=== PATIENT | male | born 1995 | race Caucasian/White ===

== ENCOUNTER 2019-03-30 21:37 | Emergency (ER) | payer BC ==
[2019-03-30 21:49] VITALS: BP 157/92; TEMP 97.5; O2SAT 98
[2019-03-30] MEDS: ONDANSETRON ODT 8 MG TAB SL ONE (22:19)
[2019-03-30] MEDS: HYDROmorphone HCL INJ 2 MG/ML VIAL IM ONE (22:20)
--- NOTE | 2019-03-30 23:41 | ED.PDOC ---
History of Present Illness - General Chief Complaint: Dental/Mouth Stated Complaint: tooth pain x3 days Time Seen by Provider: 03/30/19 22:13 Source: patient, RN notes reviewed, Vital Signs reviewed, family Exam Limitations: no limitations - History of Present Illness Initial Comments: she complains of tooth #32 pain 3 days. No trauma. No fevers or chills. worse with cold fluid or chewing. nothing makes it better. Patient denies any facial swelling. Timing/Duration: gradual Severity: moderate EENT Location: dental Prearrival Treatment: over the counter meds Improving Factors: nothing Worsening Factors: cold therapy, movement Associated Symptoms: denies symptoms Home Medications: Ambulatory Orders Acetamin W/Cod #3 Tab [Tylenol w/CODEINE #3] 1 ea PO Q6H #12 tab 03/30/19 Review of Systems - Review of Systems Constitutional: States: no symptoms reported EENTM: States: see HPI, mouth pain. Denies: ear pain, ear discharge Respiratory: States: no symptoms reported Cardiology: States: no symptoms reported Gastrointestinal/Abdominal: States: no symptoms reported Genitourinary: States: no symptoms reported Musculoskeletal: States: no symptoms reported Skin: States: no symptoms reported Neurological: States: no symptoms reported Endocrine: States: no symptoms reported Hematologic/Lymphatic: States: no symptoms reported All other Systems: Reviewed and Negative Past Medical History (General) - Patient Medical History Hx Asthma: No Hx Congestive Heart Failure: No Hx Diabetes: No Surgical History: no surgical history - Vaccination History Hx Tetanus, Diphtheria Vaccination: Yes Hx Influenza Vaccination: No Hx Pneumococcal Vaccination: No - Social History Hx Tobacco Use: No Hx Alcohol Use: Yes Family Medical History - Family History Father Family History: Unknown Physical Exam - Physical Exam General Appearance: Alert, Anxious, Obvious distress, Well Developed, Well Groomed, Well Hydrated, Well Nourished Eye Exam: bilateral normal Ear Exam: bilateral ear: auricle normal Nasal Exam: normal inspection Throat Exam: dental tenderness - tooth #32 Neck: non-tender, full range of motion, supple, normal inspection Cardiovascular/Respiratory: regular rate, rhythm, no M/R/G, normal peripheral pulses, no JVD, normal breath sounds, no respiratory distress Abdominal Exam: non-tender, no organomegaly Neurologic: head of 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 03/30/19 23:43 pain improved after pain medication. Plan d/c home. Manolo Pizarro M.D. #[id number] Departure - Departure Clinical Impression: Pain, dental Disposition: Discharge to Home or Self Care Condition: Good Departure Forms: ED Discharge - Pt. Copy, Patient Portal Self Enrollment Instructions: DI for Mouth Pain, DI for Dental Pain Prescriptions: Acetamin W/Cod #3 Tab [Tylenol w/CODEINE #3] 1 ea PO Q6H #12 tab Home Medications: Ambulatory Orders Acetamin W/Cod #3 Tab [Tylenol w/CODEINE #3] 1 ea PO Q6H #12 tab 03/30/19 Additional Instructions: Follow up with your dentist.
== END 2019-03-30 23:50 | disposition home or self-care (01) ==
LOC: ER 21:37
DX: K08.89 Other specified disorders of teeth and supporting structures (principal)

== ENCOUNTER 2019-04-19 21:55 | Emergency (ER) | payer BC ==
[2019-04-19] MEDS: IPRATROPIUM/ALBUTEROL 3 ML VIAL NEB ONE (22:51)
[2019-04-19] MEDS: ALBUTEROL SULFATE 2.5 MG/3 ML VIAL NEB ONE (22:53)
--- NOTE | 2019-04-19 22:56 | RAD ---
EXAM DESCRIPTION: Chest,2 Views CLINICAL HISTORY:23 years Male, cough Comparison: None FINDINGS: No focal lung consolidation. No pleural effusion. No pneumothorax. Cardiomediastinal silhouette is within normal limits. No acute osseous abnormality. Thoracolumbar dextroscoliosis. IMPRESSION: No acute cardiopulmonary disease. Electronically signed by: Frank Cartwright DO 04/19/2019 10:54 PM BUSINESS DIRECTOR
--- NOTE | 2019-04-19 23:45 | ED.PDOC ---
History of Present Illness - General Chief Complaint: Respiratory Problem Stated Complaint: cough and congestion for 3 days Time Seen by Provider: 04/19/19 22:18 Source: patient, RN notes reviewed, Vital Signs reviewed Exam Limitations: no limitations - History of Present Illness Comments: patient presents with complaints of unremitting cough 3 days. It is worsening. It is causing him to have a sore throat. The pain is scratchy in nature. It is a 10 out of 10. Worse with deep inspiration or cough. Cough is worse with deep inspiration. Patient has not taken any medications to control the cough. Patient denies fever, chills, nausea, vomiting, diarrhea. He denies any headache or blurry vision. He does have some mild shortness of breath. He denies chest pain. Cough Quality/Degree: moderate, dry cough Possible Cause: occasional episodes Improving Factors: nothing Associated Symptoms: cough, nasal congestion, nasal drainage, shortness of breath, sore throat Respiratory Risk Factors: no cause identified Allergies/Adverse Reactions: Allergies NO KNOWN ALLERGY Allergy (Verified 03/30/19 23:52) Home Medications: Ambulatory Orders Acetamin W/Cod #3 Tab [Tylenol w/CODEINE #3] 1 ea PO Q6H #12 tab 03/30/19 Guaifenesin-Codeine [Guaifenesin AC] 10 ml PO Q6H PRN #120 ml 04/20/19 predniSONE 60 mg PO DAILY #12 tab 04/20/19 Review of Systems - Review of Systems Constitutional: States: see HPI. Denies: chills, fever EENTM: States: see HPI, nose congestion Respiratory: States: see HPI, cough, short of breath. Denies: stridor, wheezing Cardiology: States: no symptoms reported Gastrointestinal/Abdominal: States: no symptoms reported Genitourinary: States: no symptoms reported Musculoskeletal: States: no symptoms reported Skin: States: no symptoms reported Neurological: States: no symptoms reported Endocrine: States: no symptoms reported Hematologic/Lymphatic: States: no symptoms reported All other Systems: Reviewed and Negative Past Medical History (General) - Patient Medical History Hx Seizures: No Hx Stroke: No Hx Dementia: No Hx Asthma: Yes - childhood asthma Hx of COPD: No Hx Cardiac Disorders: No Hx Congestive Heart Failure: No Hx Pacemaker: No Hx Hypertension: No Hx Thyroid Disease: No Hx Diabetes: No Hx Gastroesophageal Reflux: No Hx Renal Disease: No Hx Cancer: No Hx of HIV: No Hx Hepatitis C: No Hx MRSA: No Surgical History: no surgical history - Vaccination History Hx Tetanus, Diphtheria Vaccination: Yes Hx Influenza Vaccination: No Hx Pneumococcal Vaccination: No Immunizations Up to Date: Yes - Social History Hx Tobacco Use: No Hx Chewing Tobacco Use: No Hx Alcohol Use: Yes - ocasional use Hx Substance Use: No Hx Substance Use Treatment: No Hx Depression: No Feels Threatened In Home Enviroment: No Feels Threatened In a Relationship: No Hx Physical Abuse: No Hx Emotional Abuse: No Hx Suspected Abuse: No - Activities of Daily Living [facility] (if applicable):: [facility] Agency (if applicable):: None - Female History Patient is a Female of Child Bearing Age (10 -59 yrs old): No Family Medical History - Family History Father Family History: Unknown Physical Exam - Physical Exam General Appearance: Alert, Well Developed, Well Hydrated, Well Nourished Eye Exam: bilateral normal ENT Exam: normal ENT inspection, hearing grossly normal, pharynx normal, nasal congestion, other - posterior oropharynx with cobblestoning. Patient also with postnasal drip. Neck: non-tender, full range of motion, supple, normal inspection Respiratory: chest non-tender, no respiratory distress, no accessory muscle use, rhonchi, other - patient with unremitting nonproductive cough. 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 Home with steroids and cough syrup. I discussed the plan of care with the patient he voices understanding and agreement. Manolo Pizarro M.D. #[id number] - Results/Orders Results/Orders: EXAM DESCRIPTION: Chest,2 Views CLINICAL HISTORY:23 years Male, cough Comparison: None FINDINGS: No focal lung consolidation. No pleural effusion. No pneumothorax. Cardiomediastinal silhouette is within normal limits. No acute osseous abnormality. Thoracolumbar dextroscoliosis. IMPRESSION: No acute cardiopulmonary disease. Electronically signed by: Frank Cartwright DO 04/19/2019 10:54 influenza is negative. Departure - Departure Clinical Impression: Viral upper respiratory tract infection with cough Time of Disposition: 23:54 Disposition: Discharge to Home or Self Care Condition: Good Departure Forms: ED Discharge - Pt. Copy, Patient Portal Self Enrollment Instructions: DI for Respiratory Syncytial Virus -- Adults, Viral Upper Respiratory Infection, Adult (DC) Referrals: Ba Rendon MD [Active Staff] - 1 Week Prescriptions: Guaifenesin-Codeine [Guaifenesin AC] 10 ml PO Q6H PRN #120 ml PRN Reason: Cough predniSONE 60 mg PO DAILY #12 tab Home Medications: Ambulatory Orders Acetamin W/Cod #3 Tab [Tylenol w/CODEINE #3] 1 ea PO Q6H #12 tab 03/30/19 Guaifenesin-Codeine [Guaifenesin AC] 10 ml PO Q6H PRN #120 ml 04/20/19 predniSONE 60 mg PO DAILY #12 tab 04/20/19
[2019-04-20] MEDS: DEXAMETHASONE INJ 10 MG/ML VIAL IM ONE (00:04)
[2019-04-20] MEDS: ACETAMINOPHEN W/COD #3 TAB (ER Disp) PO ONE (00:15)
[2019-04-20 00:22] VITALS: BP 143/93; TEMP 98.1; O2SAT 98
== END 2019-04-20 00:15 | disposition home or self-care (01) ==
LOC: ER 21:55
DX: J06.9 Acute upper respiratory infection, unspecified (principal)
CPT/HCPCS: 71046; 87502; 94640; J1100; J7611; J7620

== ENCOUNTER 2019-05-23 08:59 | Emergency (ER) | payer BC ==
[2019-05-23] MEDS ORDERED: IPRATROPIUM/ALBUTEROL 3 ML VIAL NEB ONE (09:11)
[2019-05-23] MEDS ORDERED: predniSONE 20 MG TAB PO ONE (09:11)
--- NOTE | 2019-05-23 09:25 | ED.PDOC ---
History of Present Illness - General Chief Complaint: Respiratory Problem Stated Complaint: Cough, shortness of breath Time Seen by Provider: 05/23/19 09:04 Source: patient - History of Present Illness Comments: 23-year-old male presents to the emergency department complaining of cough, congestion and shortness of breath onset 2 days ago. The symptoms have worsened since this morning. He denies any associated fever or chills. He has not had any chest pain, abdominal pain, nausea or vomiting. His was recently ill with similar symptoms. He has taken [id number] Tylenol and Motrin without significant improvement in symptoms. He was using his 's inhaler which did temporarily seemed to help symptoms. Symptoms are currently rated as moderate in severity and have worsened over time. Allergies/Adverse Reactions: Allergies Atomoxetine [From Strattera] Allergy (Verified 05/23/19 09:09) Rash Tramadol Allergy (Verified 05/23/19 09:09) Home Medications: Ambulatory Orders Albuterol Inhaler [Ventolin Hfa Inhaler] 1 - 2 puff INH Q4H PRN #1 inh 05/23/19 Prednisone 50 mg PO DAILY #5 tab 05/23/19 Review of Systems - Review of Systems Constitutional: Denies: chills, fever EENTM: States: nose congestion. Denies: throat pain, throat swelling Respiratory: States: cough, short of breath Cardiology: Denies: chest pain, palpitations Gastrointestinal/Abdominal: Denies: abdominal pain, diarrhea, vomiting Genitourinary: Denies: dysuria, hematuria Musculoskeletal: Denies: joint pain, muscle pain Skin: Denies: lesions, rash Neurological: Denies: headache, numbness, weakness Past Medical History (General) - Patient Medical History Hx Seizures: No Hx Stroke: No Hx Dementia: No Hx Asthma: Yes - childhood asthma Hx of COPD: No Hx Cardiac Disorders: No Hx Congestive Heart Failure: No Hx Pacemaker: No Hx Hypertension: No Hx Thyroid Disease: No Hx Diabetes: No Hx Gastroesophageal Reflux: No Hx Renal Disease: No Hx Cancer: No Hx of HIV: No Hx Hepatitis C: No Hx MRSA: No Surgical History: no surgical history - Vaccination History Hx Tetanus, Diphtheria Vaccination: Yes Hx Influenza Vaccination: No Hx Pneumococcal Vaccination: No - Social History Hx Tobacco Use: No Hx Chewing Tobacco Use: No Hx Alcohol Use: No Hx Substance Use: No Hx Substance Use Treatment: No Hx Depression: No Hx Physical Abuse: No Hx Emotional Abuse: No Hx Suspected Abuse: No Family Medical History - Family History Father Family History: Unknown Physical Exam - Physical Exam General Appearance: Alert, Well Developed, Well Nourished, Other - frequent couging episodes Eye Exam: bilateral normal ENT Exam: pharynx normal, nasal congestion Neck: full range of motion, normal inspection, trachea midline Respiratory: no respiratory distress, no accessory muscle use, other - coarse BS throughout Cardiovascular/Chest: normal peripheral pulses, no edema, no murmur, tachycardia Gastrointestinal/Abdominal: normal bowel sounds, non tender, soft Extremity: normal range of motion, normal inspection Neurologic: alert, oriented x 3, other - Moves all extremities without focal deficits Skin Exam: normal color, warm/dry Comments: Vital Signs Temp 98.3 F 05/23/19 09:04 Pulse 100 H 05/23/19 09:04 Resp 22 05/23/19 09:04 BP 140/84 05/23/19 09:04 Pulse Ox 96 05/23/19 09:04 Progress - Progress Progress: 05/23/19 10:07 Patient recheck: He is feeling better after breathing treatment. We discussed the x-ray findings today along with the diagnosis of bronchitis. He will be discharged with a prescription for albuterol as well as prednisone to use at home. He is given information for the [facility] to follow up with and told to return to the emergency department for any significant worsening of symptoms or other concerns. The patient has voiced understanding and agrees with the treatment plan and all questions and concerns were addressed. - Results/Orders Results/Orders: 2 View CXR: IMPRESSION: No acute process is identified in the chest. Electronically signed by: Bereket Fuller MD 05/23/2019 9:56 AM [employer] Departure - Departure Clinical Impression: Bronchitis URI (upper respiratory infection) Qualifiers: URI type: unspecified URI Qualified Code(s): J06.9 - Acute upper respiratory infection, unspecified Time of Disposition: 10:08 Disposition: Discharge to Home or Self Care Condition: Good Departure Forms: ED Discharge - Pt. Copy, Patient Portal Self Enrollment Instructions: Acute Bronchitis Referrals: [facility] [Provider Group] - 1-5 Days Prescriptions: Albuterol Inhaler [Ventolin Hfa Inhaler] 1 - 2 puff INH Q4H PRN #1 inh PRN Reason: sob Prednisone 50 mg PO DAILY #5 tab Home Medications: Ambulatory Orders Albuterol Inhaler [Ventolin Hfa Inhaler] 1 - 2 puff INH Q4H PRN #1 inh 05/23/19 Prednisone 50 mg PO DAILY #5 tab 05/23/19 Additional Instructions: Take medications as directed. Use [id number] honey and pineapple juice to help with cough suppression. Drink frequent oral fluids. Follow up with the [facility] or primary care physician of your choice soon as possible. Return to the emergency department for any significant worsening of symptoms or other concerns.
--- NOTE | 2019-05-23 09:58 | RAD ---
EXAM DESCRIPTION: Chest,2 Views CLINICAL HISTORY: cough COMPARISON: Previous study April 19, 2019 TECHNIQUE: PA/lateral FINDINGS: There is no acute appearing cardiac or pulmonary abnormality. Heart size is normal with normal pulmonary vascularity. No pleural effusion or pneumothorax. Lungs are clear with no consolidating infiltrate. Lateral view shows intact sternum and T-spine. Scoliotic curvature of the T-spine. IMPRESSION: No acute process is identified in the chest. Electronically signed by: Bereket Fuller MD 05/23/2019 9:56 AM [facility]
[2019-05-23 10:27] VITALS: BP 144/86; TEMP 97.8; O2SAT 96
== END 2019-05-23 10:15 | disposition home or self-care (01) ==
LOC: ER 08:59
DX: J06.9 Acute upper respiratory infection, unspecified (principal); J40 Bronchitis, not specified as acute or chronic; Z79.899 Other long term (current) drug therapy
CPT/HCPCS: 71046; 94640; J7512; J7620

== ENCOUNTER 2020-04-15 18:16 | Emergency (ER) | payer BC ==
--- NOTE | 2020-04-15 18:27 | ED.PDOC ---
History of Present Illness - General Time Seen by Provider: 04/15/20 18:18 Source: patient, RN notes reviewed, Vital Signs reviewed Exam Limitations: no limitations - History of Present Illness Initial Comments: 24 yo with wisdom teeth impacting onto his other teeth. Has not seen a dentist for removal. tried alleve, motrin, tylenol, orajel, cbd oil, clove oil without improvement in pain. no fever. Timing/Duration: gradual Severity: moderate EENT Location: dental Prearrival Treatment: over the counter meds Improving Factors: nothing Worsening Factors: eating, medication, movement Allergies/Adverse Reactions: Allergies Atomoxetine [From Strattera] Allergy (Verified 05/23/19 09:09) Rash Tramadol Allergy (Verified 05/23/19 09:09) Home Medications: Ambulatory Orders Albuterol Inhaler [Ventolin Hfa Inhaler] 1 - 2 puff INH Q4H PRN #1 inh 05/23/19 Prednisone 50 mg PO DAILY #5 tab 05/23/19 Review of Systems - Review of Systems Constitutional: Denies: chills, fever EENTM: States: mouth pain Respiratory: Denies: cough, short of breath Cardiology: Denies: chest pain Gastrointestinal/Abdominal: Denies: abdominal pain, nausea Musculoskeletal: Denies: back pain, joint pain, muscle pain Skin: Denies: rash Neurological: Denies: headache, paresthesia, seizure Hematologic/Lymphatic: Denies: easy bleeding, easy bruising Past Medical History (General) - Patient Medical History Hx Seizures: No Hx Stroke: No Hx Dementia: No Hx Asthma: Yes - childhood asthma Hx of COPD: No Hx Cardiac Disorders: No Hx Congestive Heart Failure: No Hx Pacemaker: No Hx Hypertension: No Hx Thyroid Disease: No Hx Diabetes: No Hx Gastroesophageal Reflux: No Hx Renal Disease: No Hx Cancer: No Hx of HIV: No Hx Hepatitis C: No Hx MRSA: No - Vaccination History Hx Tetanus, Diphtheria Vaccination: Yes Hx Influenza Vaccination: No Hx Pneumococcal Vaccination: No - Social History Hx Tobacco Use: No Hx Chewing Tobacco Use: No Hx Alcohol Use: No Hx Substance Use: No Hx Substance Use Treatment: No Hx Depression: No Hx Physical Abuse: No Hx Emotional Abuse: No Hx Suspected Abuse: No Family Medical History - Family History Father Family History: Unknown Physical Exam - Physical Exam General Appearance: Alert, Comfortable, No apparent distress, Well Developed, Well Groomed, Well Hydrated, Well Nourished Eye Exam: bilateral normal Throat Exam: pharynx normal, dental tenderness, other - left lower wisdom tooth with impaction onto back molar. 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 04/15/20 19:18 The data reviewed when caring for this patient included: nurse notes, prior records, etc. The history and assessments from nurses notes were reviewed and considered, and the patient's home medication list was also reviewed and considered. My assessment and the results of testing completed here in the ED were discussed with the patient. All questions were answered, and they express understanding of my assessment and the plan. They have been instructed to return if their symptoms worsen, and have been asked to follow up with their dentist to recheck today's presenting complaint. return precautions given. I have reviewed medication, benefits, alternatives and side effects. Patient decided to proceed with medication. Ericka Cifuentes DO #[id number] Departure - Departure Clinical Impression: Pain, dental Time of Disposition: 18:32 Disposition: Discharge to Home or Self Care Condition: Fair Departure Forms: ED Discharge - Pt. Copy, Patient Portal Self Enrollment Instructions: Impacted Tooth, Dental Pain (DC) Diet: other - soft diet Referrals: Yonis Trinidad MD [Primary Care Provider] - 1-5 Days Home Medications: Ambulatory Orders Albuterol Inhaler [Ventolin Hfa Inhaler] 1 - 2 puff INH Q4H PRN #1 inh 05/23/19 Prednisone 50 mg PO DAILY #5 tab 05/23/19 Additional Instructions: Alleve 500 mg twice a day with food or milk for pain. Comments: Follow up with a dentist.
[2020-04-15] MEDS ORDERED: KETOROLAC TROMETHAMINE INJ 60 MG/2 ML VIAL IM ONE (18:32)
[2020-04-15 18:34] VITALS: TEMP 97.7
[2020-04-15 18:57] VITALS: BP 129/102; O2SAT 97
== END 2020-04-15 18:55 | disposition home or self-care (01) ==
LOC: ER 18:16
DX: K01.1 Impacted teeth (principal); J45.909 Unspecified asthma, uncomplicated; Z79.899 Other long term (current) drug therapy; Z88.8 Allergy status to other drugs, medicaments and biological substances; Z88.5 Allergy status to narcotic agent